=== PATIENT | male | born 1970 | race Two or more races ===

== ENCOUNTER 2016-05-06 22:10 | Emergency (ER) | payer SELFPAY ==
[~2016-05-06] VITALS: Ht 167.6 cm; Wt 65.8 kg
[2016-05-06 22:21] VITALS: BP 137/79
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
[2016-05-06] MEDS ORDERED: ORPHENADRINE CITRATE 60 MG/2 ML VIAL. IM ONE (23:15)
[2016-05-06] MEDS ORDERED: KETOROLAC TROMETHAMINE 60 MG/2 ML SYRINGE. IM ONE (23:15)
[2016-05-07] MEDS ORDERED: HYDR-971 PO (00:02)
[2016-05-07] MEDS ORDERED: ORPH100T PO (00:02)
[2016-05-07] MEDS ORDERED: NAPR550T PO (00:02)
--- NOTE | 2016-05-07 08:11 | RAD ---
Lumbar spine, 3 views, 05/06/2016: History: Fall, low back pain The lumbar vertebral heights are well-maintained. There are mild scattered marginal spurs. The intervertebral disc spaces are not significantly narrowed. The paraspinous soft tissues are unremarkable. IMPRESSION: 1. Mild marginal spurring. 2. No acute lumbar spine abnormality is detected.
== END 2016-05-07 00:30 | disposition home or self-care (01) ==
LOC: ER 22:10
DX: M54.5 Low back pain (principal); Z86.73 Personal history of transient ischemic attack (TIA), and cerebral infarction without residual deficits
CPT/HCPCS: 72100; 96372; 99284; J1885; J2360

== ENCOUNTER 2017-11-18 21:42 | Emergency (ER) | payer OTHER, MEDICARE ==
[2017-11-19] MEDS: MORPHINE SULFATE 10 MG/ML VIAL. IM (00:03)
[2017-11-19] MEDS: ONDANSETRON ODT 4 MG TAB.RAPDIS. PO (00:04)
== END 2017-11-19 00:49 | disposition home or self-care (01) ==
LOC: ER 21:42
DX: S22.32XA Fracture of one rib, left side, initial encounter for closed fracture (principal); M54.2 Cervicalgia; R51 Headache; W18.30XA Fall on same level, unspecified, initial encounter; Y93.89 Activity, other specified; Y92.89 Other specified places as the place of occurrence of the external cause; Y99.8 Other external cause status; F32.9 Major depressive disorder, single episode, unspecified
CPT/HCPCS: 70450; 71250; 72125; 96372; 99284; J2270; Q0162

== ENCOUNTER 2017-11-19 23:46 | Emergency (ER) | payer OTHER ==
[~2017-11-19] VITALS: Ht 167.6 cm; Wt 72.6 kg
[~2017-11-19 23:46] MED LIST: HYDR-971 PO; LEVE500T56 PO; NAPR-682 PO; ORPH100T PO
[2017-11-19 23:56] VITALS: BP 140/81
[2017-11-20] MEDS ORDERED: diazePAM 5 MG TABLET PO ONE
[2017-11-20] MEDS ORDERED: MORPHINE SULFATE 10 MG/ML VIAL. IM ONE
[2017-11-20] MEDS ORDERED: CYCL10TA2 PO (00:05)
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
== END 2017-11-20 01:27 | disposition home or self-care (01) ==
LOC: ER 23:46
DX: S22.32XA Fracture of one rib, left side, initial encounter for closed fracture (principal); Z76.0 Encounter for issue of repeat prescription; F32.9 Major depressive disorder, single episode, unspecified; Z86.73 Personal history of transient ischemic attack (TIA), and cerebral infarction without residual deficits; W18.39XA Other fall on same level, initial encounter; Y93.89 Activity, other specified; Y99.8 Other external cause status; Y92.89 Other specified places as the place of occurrence of the external cause
CPT/HCPCS: 96372; 99283; J2270

== ENCOUNTER 2018-08-10 16:55 | Emergency (ER) | payer OTHER ==
[~2018-08-10 16:55] MED LIST changes: +CYCL10TA2 PO; +HYDR-3164 PO; -HYDR-971 PO
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
== END 2018-08-10 20:13 | disposition home or self-care (01) ==
LOC: ER 16:55
DX: M25.512 Pain in left shoulder (principal); L23.7 Allergic contact dermatitis due to plants, except food; R50.9 Fever, unspecified; R00.2 Palpitations; R06.2 Wheezing; R35.0 Frequency of micturition; R06.02 Shortness of breath; R60.0 Localized edema
CPT/HCPCS: 73030; 99284

== ENCOUNTER 2018-10-22 13:20 | Emergency (ER) | payer OTHER, MEDICAID ==
[~2018-10-22] VITALS: Ht 162.6 cm; Wt 65.8 kg
[2018-10-22] MEDS ORDERED: KETOROLAC 60 MG/2 ML VIAL. IM ONE (13:45)
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
--- NOTE | 2018-10-22 14:35 | RAD ---
[facility] Compliance Statement: One or more of the following individualized dose reduction techniques were utilized for this examination: 1. Automated exposure control 2. Adjustment of the mA and/or kV according to patient size 3. Use of iterative reconstruction technique CT head and cervical spine without contrast 10/22/2018 1:[address] lumbar spine without contrast INDICATION: Fall with history of stroke COMPARISON: CT head November 18, 2017, MRI brain June 09, 2016 TECHNIQUE: Multiple axial CT images of the head were obtained from skull base through the vertex without intravenous contrast. Multiple axial CT images of the cervical and lumbar spine were obtained without intravenous contrast. Coronal and sagittal reformats are provided. FINDINGS: Head: Ventricles, sulci and basal cisterns are within normal limits. There is no hydrocephalus. Burks-white matter differentiation is normal. There is no acute intracranial hemorrhage. There is no mass, mass effect or midline shift. Stable moderate-sized retrocerebellar cyst. Visualized portions of the orbits are normal. There is complete opacification of the right maxillary sinus with high attenuation material suggestive of inspissated mucus or fungal colonization. Mastoid air cells are well aerated. Scalp and calvaria are normal. Cervical spine: Alignment of the cervical spine is normal. Skull base is intact. Craniocervical junction is normal in appearance. Atlantoaxial articulation is normal. Vertebral body heights are maintained without evidence for acute fracture. There is a posterior disc osteophyte complex at C5-C6 asymmetric to the left with mild facet arthropathy. There is moderate left uncovertebral joint disease. There is moderate to severe left and moderate right foraminal stenosis. Mild spinal canal stenosis. There is no prevertebral soft tissue swelling. Thyroid gland is normal in appearance. Visualized portions of the lung apices are normal without evidence for suspicious pulmonary nodule or infiltrate. Lumbar spine: There is minimal retrolisthesis of L5 on S1. No spondylolysis. Vertebral body heights are maintained. No acute fracture is identified. Visualized portions of the sacrum and iliac bones appear intact. Abdominal aorta is normal in caliber. No suspicious retroperitoneal abnormality is identified. Urinary bladder is within normal limits given degree of distention is visualized. At L4-L5, there is a moderate disc bulge. There is mild facet arthropathy. There is moderate bilateral neuroforaminal stenosis. Mild spinal canal stenosis. L5-S1: There is mild disc bulge. There is moderate left and moderate facet arthropathy. Moderate bilateral neuroforaminal stenosis. No significant spinal canal stenosis. IMPRESSION: 1. No acute intracranial hemorrhage. There is complete opacification of the right maxillary sinus with high attenuation material which may reflect inspissated mucus versus fungal colonization. Remodeling of the sinus singh could represent underlying mucocele. 2. No acute fracture or malalignment of the cervical spine. Mild cervical spondylosis at C5-C6. 3. No acute fracture or malalignment of the lumbar spine. Mild lumbar spondylosis at L4-L5 and L5-S1. Electronically signed by: Kelly Paulson MD (10/22/2018 2:33 PM) [id number]
[2018-10-22] MEDS ORDERED: NAPR-683 PO (15:24)
[2018-10-22] MEDS ORDERED: CYCL10TA2 PO (15:24)
--- NOTE | 2018-10-22 15:31 | RAD ---
3 view left shoulder HISTORY: Pain after fall COMPARISON: August 10, 2018 FINDINGS: Irregularity of the distal left clavicle at the acromioclavicular joint is again seen and suspicious for a nondisplaced fracture. The joint space appears intact. The humerus appears intact. The scapula appears intact. IMPRESSION: No new fracture Progressive irregularity of the distal left clavicle consistent with nondisplaced fracture of the distal left clavicle with delayed healing compared with August 10. Electronically signed by: Hesham Schaefer MD (10/22/2018 3:28 PM) [facility] [place]
[2018-10-22 16:00] VITALS: BP 134/85
== END 2018-10-22 16:05 | disposition home or self-care (01) ==
LOC: ER 13:20
DX: S13.8XXA Sprain of joints and ligaments of other parts of neck, initial encounter (principal); S39.012A Strain of muscle, fascia and tendon of lower back, initial encounter; S46.812A Strain of other muscles, fascia and tendons at shoulder and upper arm level, left arm, initial encounter; R51 Headache; W18.39XA Other fall on same level, initial encounter; Y93.89 Activity, other specified; Y92.240 Courthouse as the place of occurrence of the external cause; Y99.8 Other external cause status
CPT/HCPCS: 70450; 72125; 72131; 73030; 96372; 99284; J1885

== ENCOUNTER 2019-07-22 12:41 | Emergency (ER) | payer MEDICARE, MEDICAID ==
[~2019-07-22] VITALS: Ht 162.6 cm; Wt 63.6 kg
[~2019-07-22 12:41] MED LIST changes: +NAPR-683 PO
[2019-07-22 13:18] LABS: BASO % 1 % (0-3); EOS # 0.3 x10^3/uL (0.0-0.7); EOS % 5 % (0-3); HEMATOCRIT 50.1 % (39.0-53.0); HEMOGLOBIN 17.1 g/dL (13.0-17.5); LYMPH # 2.6 x10^3/uL (1.0-4.8); LYMPH % 37 % (24-48); MEAN CORPUSCULAR HEMOGLOBIN 30 pg (25-35); MEAN CORPUSCULAR HGB CONC 34 g/dL (31-37); MEAN CORPUSCULAR VOLUME 89 fL (79-100); MONO # 0.3 x10^3/uL (0.0-1.1); MONO % 5 % (0-9); NEUT # 3.6 x10^3/uL (1.8-7.7); NEUT % 52 % (31-73); PLATELET COUNT 224 x10^3/uL (140-400); RED BLOOD COUNT 5.63 x10^6/uL (4.30-5.70); RED CELL DISTRIBUTION WIDTH 13.3 % (11.5-14.5); WHITE BLOOD COUNT 6.9 x10^3/uL (4.0-11.0)
--- NOTE | 2019-07-22 13:31 | RAD ---
PORTABLE CHEST 1V History: Seizure Comparison: Chest CT November 18, 2017. Findings: No consolidation or pleural effusion. Normal heart size. No pneumothorax. Chronic left-sided rib fracture. Impression: 1. No acute cardiopulmonary process. Electronically signed by: Vitaly Prather DO (07/22/2019 1:28 PM) [id number]
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
[2019-07-22 14:00] LABS: CALCIUM 9.7 mg/dL (8.5-10.1); CREATININE 1.4 mg/dL (0.7-1.3); GFR 54.1; POTASSIUM 5.4 mmol/L (3.5-5.1)
[2019-07-22 14:06] LABS: ALBUMIN 4.5 g/dL (3.4-5.0); ALBUMIN/GLOBULIN RATIO 1.2 (1.0-1.7); MAGNESIUM 2.2 mg/dL (1.8-2.4); TOTAL BILIRUBIN 0.5 mg/dL (0.2-1.0); TOTAL PROTEIN 8.4 g/dL (6.4-8.2)
--- NOTE | 2019-07-22 14:07 | RAD ---
CT HEAD WO CONTRAST Clinical indications: Seizure activity. COMPARISON: October 22, 2018. Technique: Noncontrast axial cross sectional scanning of the head was performed. PQRS compliance Statement One or more of the following individualized dose reduction techniques were utilized for this study: 1. Automated exposure control 2. Adjustment of the mA and/or kV according to patient size 3. Use of iterative reconstruction technique Findings: No acute intracranial hemorrhage or midline shift or mass-effect or hydrocephalus or extra-axial fluid collection is seen. Prominent cisterna magna is seen which was seen previously. No focal hypodense area or sulci effacement is seen to indicate an acute infarct or edema radiographically. No skull fracture or pneumocephalus is seen. No opacification of the mastoid sinuses or the middle ear cavities or the paranasal sinuses is seen. The maxillary sinuses are not seen in this study. Impression: No acute intracranial abnormality is seen. Electronically signed by: Kevin Viera MD (07/22/2019 2:04 PM) [id number]
[2019-07-22 14:20] LABS: BILIRUBIN,URINE NEGATIVE (NEG); CLARITY,URINE CLEAR; COLOR,URINE YELLOW; NITRITE,URINE NEGATIVE (NEG); PROTEIN,URINE NEGATIVE (NEG-TRACE); UROBILINOGEN,URINE 0.2 mg/dL (0.2 mg/dL)
[2019-07-22 14:26] LABS: BARBITURATES NEG (NEG); BENZODIAZEPINES NEG (NEG); CANNABINOIDS NEG (NEG); COCAINE NEG (NEG); METHADONE NEG (NEG); OPIATES NEG (NEG); PHENCYCLIDINE NEG (NEG)
[2019-07-22 14:28] LABS: AMPHETAMINE/METHAMPHETAMINE NEG (NEG)
[2019-07-22 14:44] LABS: HYALINE CASTS, URINE MODERATE /HPF; SQUAMOUS EPITHELIAL CELL,UR FEW /LPF
[2019-07-22 14:45] LABS: BACTERIA,URINE 0 /HPF (0-FEW); SPERM,URINE PRESENT /HPF
[2019-07-22] MEDS ORDERED: IV NORMAL SALINE 1000ML BAG 1,000 ML IV ONE (14:45)
[2019-07-22] MEDS ORDERED: levETIRAcetam 500 MG TABLET PO STA (15:11)
[2019-07-22] MEDS ORDERED: ACETAMINOPHEN 650 MG/20.3 ML SOLUTION. GT PRN (15:15)
[2019-07-22] MEDS ORDERED: ZOLPIDEM 5 MG TABLET. PO PRN (15:15)
[2019-07-22] MEDS ORDERED: ONDANSETRON PF 4 MG/2 ML VIAL. IV PRN (15:15)
[2019-07-22] MEDS ORDERED: LEVE500T56 PO (15:22)
[2019-07-22 15:31] VITALS: BP 148/90
[2019-07-22] MEDS ORDERED: levETIRAcetam 500 MG in IV DEXTROSE 5% 100ML 100 ML IV SCH (21:00)
--- NOTE | 2019-07-23 20:07 | EKG ---
[facility] [address] [place] [address] Test Date: 2019-07-22 Test Time: 12:56:56 Pat Name: ABE BORDEN Department: Room: Gender: M [employer] Lead: : 1970 Requested By: DILIA WEINSTEIN Order Number: [id number] Reading MD: Rashaun Leija MD Measurements Intervals [place] Rate: 99 P: 57 FL: 124 QRS: 32 QRSD: 78 T: 42 QT: 396 QTc: 514 Interpretive Statements SINUS RHYTHM PROLONGED QT NON-SPECIFIC ST/T CHANGES Electronically Signed On 07-25-2019 9:37:12 CDT by Rashaun Leija MD
== END 2019-07-22 15:43 | disposition home or self-care (01) ==
LOC: ER 12:41
DX: R56.9 Unspecified convulsions (principal); I10 Essential (primary) hypertension; R51 Headache; Z86.73 Personal history of transient ischemic attack (TIA), and cerebral infarction without residual deficits
CPT/HCPCS: 36415; 70450; 71045; 80053; 80177; 80307; 81001; 82553; 83605; 83735; 83880; 84443; 84484; 85025; 93005; 99285; J7030